=== PATIENT | male | born 1935 | race Caucasian/White ===

== ENCOUNTER 2021-06-21 20:28 | Emergency (ER) | payer MEDICARE ==
[~2021-06-21] VITALS: Ht 170.2 cm; Wt 70.2 kg
--- NOTE | 2021-06-21 20:33 | PHYS DOC ---
Past History Past Medical History: Arthritis, Arrhythmia, CVA, High Cholesterol, Hypertension, TIA General Adult HPI: HPI: Patient is a 86 year old male who presents with acute mental status change. Was found down at home. Pt last know normal was 1945 hrs. Pt. found him down and appeared to be staring to Lt. and non verbal. gave him an Aspirin and Pt. also had Plavix. as his regular med. Pt. has had a history of previous TIAs and CVAs. Patient has been under increased stress since his brother last week has been ill. Has had trouble controlling his blood pressure in the past week. No recent travel. Has completed COVID vaccinations. Has not completed flu vaccination. Normally follows with Dr. Prakash. Patient has reportedly been compliant with his hypertensive, lipid and Plavix meds Review of Systems: Review of Systems: Unable to complete review of systems due to patient's mental status Family History: Family History: Noncontributory to presentation Current Medications: Current Meds: See nursing for home meds Allergies: Allergies: No known drug allergies Physical Exam: PE: Constitutional: in acute distress, non-toxic appearance. [] HENT: Normocephalic, atraumatic, bilateral external ears normal, oropharynx moist, no oral exudates, nose normal. Has good gag. [] Eyes: PERRLA, Fixed gaze to Lt,, conjunctiva normal, no discharge. [] Neck: Normal range of motion, no tenderness, supple, no stridor. [] Trachea midline. Cardiovascular:Heart rate regular rhythm, no murmur [] Lungs & Thorax: Bilateral breath sounds equal at apex on auscultation [] Abdomen: Bowel sounds normal, soft, no tenderness, no masses, no pulsatile masses. [] Skin: Warm, dry, no erythema, no rash. [] Back: No tenderness, no CVA tenderness. [] Extremities: No tenderness, no cyanosis, no clubbing, ROM intact, no edema. Thready changes. Neurologic: Not alert, not oriented , has flexion with noxious stimuli with upper and lower limbs, appears to have distal sensory, fixed gaze to the left. Does not respond to voice. Only responds to noxious stimuli. Does not cross react. NIH 34- with untestable ataxia, EKG: EKG: My interpretation EKG shows a sinus rhythm at 80 bpm. There is some left axis changes. Contour changes inferior areas. But no findings of acute STEMI of contralateral changes time of this EKG is 2109 hrs. [] Radiology/Procedures: Radiology/Procedures: [address] [address] IMAGING REPORT Signed PATIENT: GREY SON ACCOUNT: [id number] : 1935 LOCATION: ER AGE: 86 SEX: M EXAM STATUS: REG ER ORD. PHYSICIAN: DEVAUGHN ROBB MD REASON: CODE STROKE, LEFT SIDE GAZE PROCEDURE: CT CODE STROKE HEAD WO STUDY: CT head without contrast INDICATION: Code stroke. Left-sided case. COMPARISON: None. TECHNIQUE: Axial CT imaging through the head without the use of intravenous contrast. Sagittal and coronal reformats were obtained. One or more of the following individualized dose reduction techniques were utilized for this examination: 1. Automated exposure control 2. Adjustment of the mA and/or kV according to patient size 3. Use of iterative reconstruction technique. FINDINGS: Prominent acute intraparenchymal hemorrhage centered along the left deep padilla nuclei with intraventricular extension to include the left lateral ventricle and third ventricle. The intraparenchymal hematoma is measured at approximately 7.4 cm AP by 2.6 cm transverse by 5.3 cm craniocaudal for an estimated volume of around 50 cc. Surrounding edema with associated mass effect with partial eff acement of the left lateral ventricle and iyfx-hh-pnyeg shift on the order of 0.4 cm. Background white matter findings most frequently on account of chronic microvascular ischemic change. Parenchymal volume loss and intracranial calcific atherosclerosis. Right orbital operative changes. No depressed calvarial fracture. Osteopenia. IMPRESSION: Acute intraparenchymal hematoma centered along the left deep padilla nuclei with an estimated volume of 50 cc. Intraventricular extension of hemorrhage seen within the left lateral and third ventricles. Resultant mass effect with partial effacement of the left lateral ventricle and inth-zx-wbbxm shift by approximately 0.4 cm. A hypertensive etiology is felt most likely. FOR INTERNAL CODING PURPOSES Critical result: Findings discussed with Devaughn Robb on 06/21/2021 at 8:49 PM. RESULT CODE: (C) Electronically signed by: MARK BENITEZ MD (06/21/2021 8:58 PM) [facility] DICTATED AND SIGNED BY: MARK BENITEZ MD DATE: 06/21/212048 CC: SUSAN PRAKASH MD; DEVAUGHN ROBB MD ~MTH0 [address] [place] [address] IMAGING REPORT Signed PATIENT: GREY SON ACCOUNT: [id number] : 1935 LOCATION: ER AGE: 86 SEX: M EXAM STATUS: REG ER ORD. PHYSICIAN: DEVAUGHN ROBB MD REASON: ams- staring to Lt. PROCEDURE: CT CERVICAL SPINE WO CONTRAST STUDY: 1. CT angiography of the head and neck 2. CT cervical spine without contrast INDICATION: Code stroke. Known intracranial hemorrhage. COMPARISON: None. TECHNIQUE: Axial CT imaging of the head and neck utilizing angiography protocol and performed after the intravenous administration of 100 cc Omnipaque 350 contrast. Multiplanar reformats and 3D MIP acquisitions were obtained. CT imaging of the cervical spine without dedicated contrast performed as well. Encountered areas of stenosis are measured per NASCET criteria. One or more of the following individualized dose reduction techniques were utilized for this examination: 1. Automated exposure control 2. Adjustment of the mA and/or kV according to patient size 3. Use of iterative reconstruction technique. FINDINGS: CTA NECK: Arch/Proximal Great Vessels: Multifocal calcified and noncalcified atheromatous plaque to include coronary artery involvement. No dissection or aneurysm of the visualized aorta. No great vessel origin flow-limiting stenosis. Mild/less than 50 percent stenosis of the right subclavian artery just distal to the ipsilateral common carotid artery origin in the setting of tortuosity and kinking. Pain left subclavian artery and bilateral common carotid arteries. Carotid Bifurcation/Cervical ICA: Plaque at the left more so than right carotid bifurcations. No flow-limiting stenosis of either cervical ICA. The left ECA origin is patent. Estimated 30 percent stenosis just distal to the right ECA origin. Vertebral Arteries: The left vertebral artery is dominant. Mild/less than 50 percent stenosis at the left vertebral artery origin. The right vertebral artery origin is patent. No flow-limiting stenosis or dissection throughout the neck. CTA HEAD: Posterior Circulation: Intracranial left vertebral artery is dominant. No flow- limiting stenosis on the right or left and both vertebral arteries contribute to basilar flow. The basilar artery is patent. No central occlusion or flow- limiting stenosis of the posterior cerebral arteries. Anterior Circulation: Bilateral carotid siphon calcific atherosclerosis without a flow-limiting stenosis. No central occlusion or flow-limiting stenosis of the middle or anterior cerebral arteries. Left middle cerebral artery branches are well-opacified along the periphery of the known intraparenchymal hemorrhage. There are several small foci of increased density along the periphery of the intracranial hemorrhage but not contiguous with adjacent vessels to confirm active sites of hemorrhage. No aneurysm is identified to account for the hemorrhage. Veins: Patent dural sinuses. MISCELLANEOUS: Heterogeneous lungs at least in part related atelectasis and scarring. No dense consolidation. Mild bronchial wall thickening. Severe arthrosis at the right shoulder and advanced arthrosis at the partially imaged left shoulder. No cervical chain adenopathy. CERVICAL SPINE: Diffuse osteopenia. No displaced fracture. No traumatic malalignment. Advanced multifactorial degenerative changes. No evidence for severe central canal stenosis. Multiple levels with neural foraminal stenosis ranging from mild to severe collectively appearing greatest on the left at C4-C5. IMPRESSION: CT ANGIOGRAM: 1. No aneurysm is identified to explain the left intraparenchymal hematoma. No central occlusion or flow-limiting stenosis throughout the anterior or posterior cerebral circulation. Patent dural sinuses. A hypertensive etiology for the hemorrhage is still favored. 2. Multifocal calcified and noncalcified atheromatous plaque. Scattered stenoses resulting in less than 50% luminal narrowing as described in the body the report. No dissection of the extracranial carotid or vertebral arteries. CT CERVICAL SPINE: 1. Taking into consideration osteopenia, no acute fracture. No traumatic malalignment. 2. Advanced multilevel cervical spondylosis without evidence for severe narrowing of the central canal. Osseous neural foraminal stenosis ranging from mild to severe such as on the left at C4-C5. Electronically signed by: MARK BENITEZ MD (06/21/2021 9:54 PM) [facility] DICTATED AND SIGNED BY: MARK BENITEZ MD DATE: 06/21/212138 CC: SUSAN PRAKASH MD; DEVAUGHN ROBB MD ~MTH0 0 [[address] [address] IMAGING REPORT Signed PATIENT: GREY SON ACCOUNT: [id number] : 1935 LOCATION: ER AGE: 86 SEX: M EXAM STATUS: REG ER ORD. PHYSICIAN: DEVAUGHN ROBB MD REASON: ams- staring to . PROCEDURE: CT CERVICAL SPINE WO CONTRAST STUDY: 1. CT angiography of the head and neck 2. CT cervical spine without contrast INDICATION: Code stroke. Known intracranial hemorrhage. COMPARISON: None. TECHNIQUE: Axial CT imaging of the head and neck utilizing angiography protocol and performed after the intravenous administration of 100 cc Omnipaque 350 contrast. Multiplanar reformats and 3D MIP acquisitions were obtained. CT imaging of the cervical spine without dedicated contrast performed as well. Encountered areas of stenosis are measured per NASCET criteria. One or more of the following individualized dose reduction techniques were utilized for this examination: 1. Automated exposure control 2. Adjustment of the mA and/or kV according to patient size 3. Use of iterative reconstruction technique. FINDINGS: CTA NECK: Arch/Proximal Great Vessels: Multifocal calcified and noncalcified atheromatous plaque to include coronary artery involvement. No dissection or aneurysm of the visualized aorta. No great vessel origin flow-limiting stenosis. Mild/less than 50 percent stenosis of the right subclavian artery just distal to the ipsilateral common carotid artery origin in the setting of tortuosity and kinking. Pain left subclavian artery and bilateral common carotid arteries. Carotid Bifurcation/Cervical ICA: Plaque at the left more so than right carotid bifurcations. No flow-limiting stenosis of either cervical ICA. The left ECA origin is patent. Estimated 30 percent stenosis just distal to the right ECA origin. Vertebral Arteries: The left vertebral artery is dominant. Mild/less than 50 percent stenosis at the left vertebral artery origin. The right vertebral artery origin is patent. No flow-limiting stenosis or dissection throughout the neck. CTA HEAD: Posterior Circulation: Intracranial left vertebral artery is dominant. No flow- limiting stenosis on the right or left and both vertebral arteries contribute to basilar flow. The basilar artery is patent. No central occlusion or flow- limiting stenosis of the posterior cerebral arteries. Anterior Circulation: Bilateral carotid siphon calcific atherosclerosis without a flow-limiting stenosis. No central occlusion or flow-limiting stenosis of the middle or anterior cerebral arteries. Left middle cerebral artery branches are well-opacified along the periphery of the known intraparenchymal hemorrhage. There are several small foci of increased density along the periphery of the intracranial hemorrhage but not contiguous with adjacent vessels to confirm active sites of hemorrhage. No aneurysm is identified to account for the hemorrhage. Veins: Patent dural sinuses. MISCELLANEOUS: Heterogeneous lungs at least in part related atelectasis and scarring. No dense consolidation. Mild bronchial wall thickening. Severe arthrosis at the right shoulder and advanced arthrosis at the partially imaged left shoulder. No cervical chain adenopathy. CERVICAL SPINE: Diffuse osteopenia. No displaced fracture. No traumatic malalignment. Advanced multifactorial degenerative changes. No evidence for severe central canal stenosis. Multiple levels with neural foraminal stenosis ranging from mild to severe collectively appearing greatest on the left at C4-C5. IMPRESSION: CT ANGIOGRAM: 1. No aneurysm is identified to explain the left intraparenchymal hematoma. No central occlusion or flow-limiting stenosis throughout the anterior or posterior cerebral circulation. Patent dural sinuses. A hypertensive etiology for the hemorrhage is still favored. 2. Multifocal calcified and noncalcified atheromatous plaque. Scattered stenoses resulting in less than 50% luminal narrowing as described in the body the report. No dissection of the extracranial carotid or vertebral arteries. CT CERVICAL SPINE: 1. Taking into consideration osteopenia, no acute fracture. No traumatic malalignment. 2. Advanced multilevel cervical spondylosis without evidence for severe narr owing of the central canal. Osseous neural foraminal stenosis ranging from mild to severe such as on the left at C4-C5. Electronically signed by: MARK BENITEZ MD (06/21/2021 9:54 PM) [facility] DICTATED AND SIGNED BY: MARK BENITEZ MD DATE: 06/21/212138 CC: SUSAN PRAKASH MD; DEVAUGHN ROBB MD ~MTH0 0 ][address] [address] IMAGING REPORT Signed PATIENT: GREY SON ACCOUNT: [id number] : 1935 LOCATION: ER AGE: 86 SEX: M EXAM STATUS: REG ER ORD. PHYSICIAN: DEVAUGHN ROBB MD REASON: code stroke PROCEDURE: PORTABLE CHEST 1V Study: XR CHEST 1V Indication: Code stroke. Comparison: None. Findings: Increased lung markings and hazy attenuation of the lungs. No dense consolidati on. No layering effusion or pneumothorax. The cardiomediastinal silhouette is prominent in size. Aortic calcific atherosclerosis. Diffuse osteopenia. End-stage arthrosis at the partially imaged right shoulder. Advanced but less pronounced arthrosis at the left shoulder. Several chronic rib deformities on the right. Impression: Hazy attenuation of the lungs and increased lung markings could be in part chronic such as from emphysema but interstitial edema and/or an atypical infectious process are not excluded. The cardiomediastinal silhouette is prominent in size. Electronically signed by: MARK BENITEZ MD (06/21/2021 9:39 PM) [facility] DICTATED AND SIGNED BY: MARK BENITEZ MD DATE: 06/21/212135 CC: SUSAN PRAKASH MD; DEVAUGHN ROBB MD ~MTH0 0 Heart Score: C/O Chest Pain: N/A HEART Score for Chest Pain: HEART Score for Chest Pain Response (Comments) Value History Moderately Suspicious 1 ECG Nonspecific Repolarizatio 1 Risk Factors 1 or 2 Risk Factors 1 Troponin < Normal Limit 0 Total 3 Risk Factors: Risk Factors: DM, Current or recent (<one month) smoker, HTN, HLP, family history of CAD, obesity. Risk Scores: Score 0 - 3: 2.5% MACE over next 6 weeks - Discharge Home Score 4 - 6: 20.3% MACE over next 6 weeks - Admit for Clinical Observation Score 7 - 10: 72.7% MACE over next 6 weeks - Early Invasive Strategies Course & Med Decision Making: Course & Med Decision Making Pertinent Labs and Imaging studies reviewed. (See chart for details) Discussed presentation, testing and treatment plan with Bita ALCZAAR. Advised transfer to [facility]. However no beds available. Attempted to transfer patient to per family's request with patient's acceptance was refused. A total of 8 hospitals were called for placement on a neuro ICU status.-All refused except [facility] who agreed to accept patient to the neuro ICU. Discussed presentation, testing and treatment plan with PA- Transfer. Pt accepted to Dr. Jyotsna Mccartney, and discussion with Dr. Silva - Neurosurgery at [facility]. Continued attempts at control of blood pressure with Lopressor then esmolol drip. Patient eventually placed on nicardipine drip when it became available. Critical Care- 90 min. Chart managed BP and repeated call and discussions with multiple hospital in area in attempts to get pt. transfer to Neuro ICU with Neurosurgery consult. Impression: 1. Acute Mental Status Change- CVA- Hemorrhagic 2. Intraparenchymal Hemorrhage- with Intraventricular extension Lt Lateral and Third Ventricle. 3. Accelerated hypertension 4. Elevated D-dimer 4.54 5. Elevated BUN 28/ Creat. 1.8 6. Elevated BNP 760 7. Glucose 125 [] Dragon Disclaimer: Dragon Disclaimer: This electronic medical record was generated, in whole or in part, using a voice recognition dictation system. Departure Departure: Referrals: [facility] (PCP) Dragon Disclaimer This chart was dictated in whole or in part using Voice Recognition software in a busy, high-work load, and often noisy Emergency Department environment. It may contain unintended and wholly unrecognized errors or omissions. Dragon Disclaimer This chart was dictated in whole or in part using Voice Recognition software in a busy, high-work load, and often noisy Emergency Department environment. It may contain unintended and wholly unrecognized errors or omissions. DEVAUGHN ROBB MD Jun 21, 2021 20:33
[2021-06-21] MEDS ORDERED: IV RINGERS SOLUTION,LACTATED 1,000 ML IV SCH (20:45)
[2021-06-21] MEDS ORDERED: IOHEXOL 350 MG/ML 100 ML VIAL. IV ONE (20:45)
[2021-06-21] MEDS ORDERED: PROPOFOL 0 ML IV ONE (20:49)
[2021-06-21 20:57] LABS: BASO % 1 % (0-3); EOS # 0.3 x10^3/uL (0.0-0.7); EOS % 5 % (0-3); HEMATOCRIT 39.9 % (39.0-53.0); HEMOGLOBIN 13.5 g/dL (13.0-17.5); LYMPH # 1.6 x10^3/uL (1.0-4.8); LYMPH % 25 % (24-48); MEAN CORPUSCULAR HEMOGLOBIN 31 pg (25-35); MEAN CORPUSCULAR HGB CONC 34 g/dL (31-37); MEAN CORPUSCULAR VOLUME 91 fL (79-100); MONO # 0.6 x10^3/uL (0.0-1.1); MONO % 9 % (0-9); NEUT % 61 % (31-73); PLATELET COUNT 173 x10^3/uL (140-400); RED BLOOD COUNT 4.38 x10^6/uL (4.30-5.70); RED CELL DISTRIBUTION WIDTH 14.2 % (11.5-14.5); WHITE BLOOD COUNT 6.5 x10^3/uL (4.0-11.0)
--- NOTE | 2021-06-21 21:01 | RAD ---
STUDY: CT head without contrast INDICATION: Code stroke. Left-sided case. COMPARISON: None. TECHNIQUE: Axial CT imaging through the head without the use of intravenous contrast. Sagittal and co billy reformats were obtained. One or more of the following individualized dose reduction techniques were utilized for this examinat ion: 1. Automated exposure control 2. Adjustment of the mA and/or kV according to patient size 3. Use of iterative reconstruction technique. FINDINGS: Prominent acute intraparenchymal hemorrhage centered along the left deep padilla nuclei with intraventri cular extension to include the left lateral ventricle and third ventricle. The intraparenchymal hemat francesca is measured at approximately 7.4 cm AP by 2.6 cm transverse by 5.3 cm craniocaudal for an estimat ed volume of around 50 cc. Surrounding edema with associated mass effect with partial effacement of t he left lateral ventricle and xgbj-hk-fxrnh shift on the order of 0.4 cm. Background white matter findings most frequently on account of chronic microvascular ischemic change. Parenchymal volume loss and intracranial calcific atherosclerosis. Right orbital operative changes. No depressed calvarial fracture. Osteopenia. IMPRESSION: Acute intraparenchymal hematoma centered along the left deep padilla nuclei with an estimated volume of 50 cc. Intraventricular extension of hemorrhage seen within the left lateral and third ventricles. Re sultant mass effect with partial effacement of the left lateral ventricle and queg-pr-qsnms shift by approximately 0.4 cm. A hypertensive etiology is felt most likely. FOR INTERNAL CODING PURPOSES Critical result: Findings discussed with Devaughn Robb on 06/21/2021 at 8:49 PM. RESULT CODE: (C) Electronically signed by: MARK BENITEZ MD (06/21/2021 8:58 PM) [facility]
[2021-06-21 21:04] LABS: CALCIUM 8.4 mg/dL (8.5-10.1); CREATININE 1.8 mg/dL (0.7-1.3); GFR 35.9; POTASSIUM 3.9 mmol/L (3.5-5.1)
[2021-06-21 21:13] LABS: ALBUMIN 3.5 g/dL (3.4-5.0); DIRECT BILIRUBIN 0.2 mg/dL (0.0-0.2); MAGNESIUM 2.1 mg/dL (1.8-2.4); TOTAL BILIRUBIN 0.4 mg/dL (0.2-1.0); TOTAL PROTEIN 6.7 g/dL (6.4-8.2)
[2021-06-21] MEDS ORDERED: LABETALOL 20 MG/4 ML DISP.SYRIN. IVP ONE (21:15)
[2021-06-21 21:27] LABS: BARBITURATES NEG (NEG); BENZODIAZEPINES NEG (NEG); CANNABINOIDS NEG (NEG); COCAINE NEG (NEG); METHADONE NEG (NEG); OPIATES NEG (NEG); PHENCYCLIDINE NEG (NEG)
[2021-06-21 21:28] LABS: AMPHETAMINE/METHAMPHETAMINE NEG (NEG)
[2021-06-21] MEDS ORDERED: ONDANSETRON PF 4 MG/2 ML VIAL. ONE (21:28)
[2021-06-21] MEDS ORDERED: ESMOLOL 2500MG/250ML PREMIX 250 ML IV ONE (21:30)
[2021-06-21] MEDS ORDERED: CONTRAST GIVEN. MC PRN (21:30)
[2021-06-21 21:37] LABS: BACTERIA,URINE MOD /HPF (0-FEW); BILIRUBIN,URINE NEG (NEG); CLARITY,URINE CLOUDY; COLOR,URINE YELLOW; GLUCOSE,URINE NEG (NEG); NITRITE,URINE POS (NEG); SQUAMOUS EPITHELIAL CELL,UR OCC /LPF; UROBILINOGEN,URINE 0.2 mg/dL (0.2 mg/dL); WBC,URINE >40 /HPF (0-4)
[2021-06-21 21:38] LABS: RBC,URINE OCC /HPF (0-2)
--- NOTE | 2021-06-21 21:42 | RAD ---
Study: XR CHEST 1V Indication: Code stroke. Comparison: None. Findings: Increased lung markings and hazy attenuation of the lungs. No dense consolidation. No layering effusi on or pneumothorax. The cardiomediastinal silhouette is prominent in size. Aortic calcific atheroscle rosis. Diffuse osteopenia. End-stage arthrosis at the partially imaged right shoulder. Advanced but less pro nounced arthrosis at the left shoulder. Several chronic rib deformities on the right. Impression: Hazy attenuation of the lungs and increased lung markings could be in part chronic such as from emphy sema but interstitial edema and/or an atypical infectious process are not excluded. The cardiomediast inal silhouette is prominent in size. Electronically signed by: MARK BENITEZ MD (06/21/2021 9:39 PM) [facility]
[2021-06-21] MEDS ORDERED: ONDANSETRON PF 4 MG/2 ML VIAL. IVP ONE (21:45)
[2021-06-21 21:51] LABS: INFLUENZA A PATIENT NEGATIVE (NEGATIVE); INFLUENZA B PATIENT NEGATIVE (NEGATIVE)
--- NOTE | 2021-06-21 21:56 | RAD ---
STUDY: 1. CT angiography of the head and neck 2. CT cervical spine without contrast INDICATION: Code stroke. Known intracranial hemorrhage. COMPARISON: None. TECHNIQUE: Axial CT imaging of the head and neck utilizing angiography protocol and performed after t he intravenous administration of 100 cc Omnipaque 350 contrast. Multiplanar reformats and 3D MIP acqu isitions were obtained. CT imaging of the cervical spine without dedicated contrast performed as well . Encountered areas of stenosis are measured per NASCET criteria. One or more of the following individualized dose reduction techniques were utilized for this examinat ion: 1. Automated exposure control 2. Adjustment of the mA and/or kV according to patient size 3. Use of iterative reconstruction technique. FINDINGS: CTA NECK: Arch/Proximal Great Vessels: Multifocal calcified and noncalcified atheromatous plaque to include cor onary artery involvement. No dissection or aneurysm of the visualized aorta. No great vessel origin f low-limiting stenosis. Mild/less than 50 percent stenosis of the right subclavian artery just distal to the ipsilateral common carotid artery origin in the setting of tortuosity and kinking. Pain left s ubclavian artery and bilateral common carotid arteries. Carotid Bifurcation/Cervical ICA: Plaque at the left more so than right carotid bifurcations. No flow -limiting stenosis of either cervical ICA. The left ECA origin is patent. Estimated 30 percent stenos is just distal to the right ECA origin. Vertebral Arteries: The left vertebral artery is dominant. Mild/less than 50 percent stenosis at the left vertebral artery origin. The right vertebral artery origin is patent. No flow-limiting stenosis or dissection throughout the neck. CTA HEAD: Posterior Circulation: Intracranial left vertebral artery is dominant. No flow-limiting stenosis on t he right or left and both vertebral arteries contribute to basilar flow. The basilar artery is patent . No central occlusion or flow-limiting stenosis of the posterior cerebral arteries. Anterior Circulation: Bilateral carotid siphon calcific atherosclerosis without a flow-limiting steno sis. No central occlusion or flow-limiting stenosis of the middle or anterior cerebral arteries. Left middle cerebral artery branches are well-opacified along the periphery of the known intraparenchymal hemorrhage. There are several small foci of increased density along the periphery of the intracrania l hemorrhage but not contiguous with adjacent vessels to confirm active sites of hemorrhage. No aneur ysm is identified to account for the hemorrhage. Veins: Patent dural sinuses. MISCELLANEOUS: Heterogeneous lungs at least in part related atelectasis and scarring. No dense consolidation. Mild b ronchial wall thickening. Severe arthrosis at the right shoulder and advanced arthrosis at the partia lly imaged left shoulder. No cervical chain adenopathy. CERVICAL SPINE: Diffuse osteopenia. No displaced fracture. No traumatic malalignment. Advanced multifactorial degenerative changes. No evidence for severe central canal stenosis. Multiple levels with neural foraminal stenosis ranging from mild to severe collectively appearing greatest on the left at C4-C5. IMPRESSION: CT ANGIOGRAM: 1. No aneurysm is identified to explain the left intraparenchymal hematoma. No central occlusion or f low-limiting stenosis throughout the anterior or posterior cerebral circulation. Patent dural sinuses . A hypertensive etiology for the hemorrhage is still favored. 2. Multifocal calcified and noncalcified atheromatous plaque. Scattered stenoses resulting in less th an 50% luminal narrowing as described in the body the report. No dissection of the extracranial carot id or vertebral arteries. CT CERVICAL SPINE: 1. Taking into consideration osteopenia, no acute fracture. No traumatic malalignment. 2. Advanced multilevel cervical spondylosis without evidence for severe narrowing of the central pola l. Osseous neural foraminal stenosis ranging from mild to severe such as on the left at C4-C5. Electronically signed by: MARK BENITEZ MD (06/21/2021 9:54 PM) [facility]
[2021-06-21 22:10] LABS: BGAS PH 7.42 (7.35-7.46)
[2021-06-21] MEDS ORDERED: niCARdipine INJ. IV ONE ×2 (22:17→22:19)
[2021-06-21] MEDS ORDERED: IV NORMAL SALINE 250ML 250 ML ONE (22:19)
[2021-06-21 22:53] VITALS: BP 148/73
--- NOTE | 2021-06-22 06:22 | EKG ---
[address] [address] Test Date: 2021-06-21 Test Time: 21:09:08 Pat Name: GREY SON Department: Room: Gender: M Chairlift Operator: NICOLAS : [id number] Requested By: ASHLEY MAGANA Order Number: [id number] Reading MD: Sridhar Adkins Measurements Intervals [place] Rate: 80 P: -24 DC: 212 QRS: -12 QRSD: 114 T: -26 QT: 404 QTc: 470 Interpretive Statements SINUS RHYTHM LEFTWARD AXIS QRS(T) CONTOUR ABNORMALITY CONSISTENT WITH INFERIOR INFARCT AGE UNDETERMINED ABNORMAL ECG RI6.02 No previous ECG available for comparison Electronically Signed On 06-23-2021 12:42:46 [employer]ICA[employer] SPECIALIST by Sridhar Adkins
--- NOTE | 2021-06-22 11:23 | NUR ---
ATTEMPTED TO REACH PATIENT WITH COVID RESULTS. NO ANSWER. MESSAGE LEFT
== END 2021-06-21 23:05 ==
LOC: ER 20:28
DX: I62.9 Nontraumatic intracranial hemorrhage, unspecified (principal); I61.8 Other nontraumatic intracerebral hemorrhage; I10 Essential (primary) hypertension; R79.1 Abnormal coagulation profile; R79.89 Other specified abnormal findings of blood chemistry; M19.90 Unspecified osteoarthritis, unspecified site; E78.00 Pure hypercholesterolemia, unspecified; Z20.822 Contact with and (suspected) exposure to COVID-19; Z86.73 Personal history of transient ischemic attack (TIA), and cerebral infarction without residual deficits
CPT/HCPCS: 36415; 36600; 70450; 70496; 70498; 71045; 72125; 80048; 80076; 80307; 81001; 82550; 82803; 82947; 83690; 83735; 83880; 84443; 84484; 85025; 85379; 85610; 85730; 87086; 87426; 87804; 93005; 96361; 96365; 96375; 99291; 99292; C9803; J2405; J3490; J7050; J7120; U0003